=== PATIENT | female | born 1950 | race Caucasian/White ===

== ENCOUNTER 2019-11-13 19:05 | Emergency (ER) | payer MEDICARE, OTHER ==
[~2019-11-13] VITALS: Ht 167.6 cm; Wt 66.0 kg
[~2019-11-13 19:05] MED LIST: ATROPINE SYRINGE 0.1 MG/ML, 10ML ONE; EPINEPHRINE SYRINGE 0.1 MG/ML, 10ML ONE; SODIUM BICARB 8.4%, 50ML SYRINGE ONE
[2019-11-13] MEDS ORDERED: CALCIUM CHLORIDE 10%, 10ML SYR ONE (19:34)
[2019-11-13] MEDS ORDERED: SODIUM BICARB 8.4%, 50ML SYRINGE ONE (19:34)
[2019-11-13] MEDS ORDERED: EPINEPHRINE SYRINGE 0.1 MG/ML, 10ML ONE (19:34)
[2019-11-13] MEDS ORDERED: CODE BLUE RESPONSE XX ONE (19:34)
--- NOTE | 2019-11-13 19:37 | NUR ---
D/t dementia hx pt not eligible for tissue donation. [id number] is case number, This rn talked to Charly at this time.
--- NOTE | 2019-11-13 19:41 | NUR ---
LAST SUMMARY: PT BIB EMS FROM [facility] AFTER STAFF NOTED PT BREATHING WEIRD. PT LOST PULSES IN ROUTE FOR EMS, 9 MIN OF CPR CLEANING TECHNICIAN, 1 ROUND OF EPI THROUGH IO. UPON ARRIVAL TO ROOM CPR CONTINUED- PLEASE SEE CODE SHEET FOR DETAILS. SECOND IV PLACED IN LEFT ANKLE. PT INTUBATED WITH 8.0 TUBE. PT NEVER REGAINED PULSES. TIME OF CALLED AT 1925.
--- NOTE | 2019-11-13 19:59 | NUR ---
Called homebound teacher @ [phone], awaiting call back for potential of autopsy.
--- NOTE | 2019-11-13 20:13 | NUR ---
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 Primary rn aware.
--- NOTE | 2019-11-13 20:14 | NUR ---
TECHS: TG & MATHEUS DID CPR ON THIS PT, CLEANED ROOM, PREPARED BODY FOR GERAGUChiara
--- NOTE | 2019-11-13 21:08 | NUR ---
TUBES DCd, MASK APPLIED TO PT FACE, PT TOE TAGGED, NO BELONGINGS PRESENT ON ARRIVAL. DOUBLED BAGGED, LABELED. PT BODY TAKEN DOWN TO [facility] [place]
== END 2019-11-13 21:14 | disposition expired ==
LOC: ED 19:13
DX: Z11.59 Encounter for screening for other viral diseases (principal); I46.9 Cardiac arrest, cause unspecified; J96.91 Respiratory failure, unspecified with hypoxia
CPT/HCPCS: 31500; 36680; 92950; 99291; J0461; 99285